=== PATIENT | male | born 2000 | race American Indian/Alaskan Native ===

== ENCOUNTER 2018-09-13 01:28 | Inpatient (IN) | payer OTHER, SELFPAY ==
[2018-09-13 02:02] LABS: Basophils % (Auto) 0.2 % (0.0-1.8); Eosinophils # (Auto) 0.1 K/mm3 (0.0-0.4); Hematocrit 42.3 % (35.5-45.6); Hemoglobin 14.5 gm/dl (11.8-15.2); Lymphocytes # (Auto) 1.4 K/mm3 (1.2-5.4); Lymphocytes % (Auto) 14.2 % (13.4-35.0); Mean Corpuscular HGB Conc 34 % (32-34); Mean Corpuscular Volume 78 fl (84-94); Monocytes # (Auto) 0.7 K/mm3 (0.0-0.8); Monocytes % (Auto) 7.3 % (0.0-7.3); Platelet Count 329 K/mm3 (140-440); Red Blood Count 5.42 M/mm3 (3.65-5.03)
[2018-09-13 02:09] LABS: Bilirubin,Urine NEG (Negative); Blood,Urine NEG (Negative); Color,Urine Yellow (Yellow); Mucus,Urine FEW /HPF; Protein,Urine <15 mg/dL mg/dL (Negative); Urobilinogen,Urine < 2.0 mg/dL (<2.0)
[2018-09-13 02:23] LABS: BUN/Creatinine Ratio 10; Blood Urea Nitrogen 11 mg/dL (9-20); Calcium 9.5 mg/dL (8.4-10.2); Hemolysis Index 5
[2018-09-13] MEDS ORDERED: NACL 0.9% 1000 ML 1,000 ML IV ONE (03:55)
[2018-09-13] MEDS ORDERED: TORADOL IV ONE (03:55)
[2018-09-13] MEDS ORDERED: ZOFRAN IV ONE (03:55)
--- NOTE | 2018-09-13 04:38 | Cat Scan Report ---
PROCEDURE: CT ABDOMEN PELVIS W CON TECHNIQUE: Computerized axial tomography of the abdomen and pelvis was performed after the IV inject ion of iodinated nonionic contrast. CT DOSE LENGTH PRODUCT: 2644.1 mGycm HISTORY: generalized abd pain COMPARISONS: None . FINDINGS: Visualized lower thorax: No significant abnormality. Liver: Normal size and attenuation. Spleen: Normal size and attenuation. Gallbladder and biliary system: Normal. Pancreas: Normal. Adrenals: Normal. Kidneys: Normal. GI tract: There is mucosal thickening of the terminal ileum, cecum and right colon consistent with i nflammatory bowel disease. There is partial small bowel obstruction versus ileus. The appendix is nor mal. Lymph nodes and mesentery: There is mesenteric adenopathy and induration.. Vasculature: Normal.. Bladder: Normal. Reproductive organs: Normal. Peritoneum: There is minimal ascites. There is no free air. There is no abscess.. Musculoskeletal structures: No significant abnormality. IMPRESSION: There is mucosal thickening of the terminal ileum, cecum and right colon consistent with inflammatory bowel disease. There is partial small bowel obstruction versus ileus. The appendix is normal. There is mesenteric adenopathy and induration.. There is minimal ascites. There is no free air. There is no abscess.. . This document is electronically signed by Brian Colvin MD., September 13 2018 05:36:34 AM ET
--- NOTE | 2018-09-13 04:57 | Emergency Department Report ---
ED Abdominal Pain HPI - General Chief Complaint: Abdominal Pain Stated Complaint: ABD PAIN Time Seen by Provider: 09/13/18 03:30 Source: patient Mode of arrival: Ambulatory Limitations: No Limitations - History of Present Illness Initial Comments: Pt is a 18 yo male who presents to the ED with c/o generalized abdominal pain that began a month ago. he has associated nausea. he states that he had diarrhea for a month. He states he has not had a BM today but had diarrhea yesterday. He denies any emesis, fever, or urinary sx. He states two weeks ago he was seen at urgent care and given abx for his diarrhea but does not know what he took. He denies every having before. He denies any PMHx. He denies any abdominal surgeries. no allergies to medications. Severity scale (0 -10): 8 - Related Data Previous Rx's Medication Instructions Recorded Last Taken Type Pantoprazole [Protonix TAB] 40 mg PO DAILY #14 tablet 09/16/18 Unknown Rx levoFLOXacin [Levaquin] 750 mg PO QDAY #7 tablet 09/16/18 Unknown Rx metroNIDAZOLE [Flagyl] 500 mg PO Q8HR #21 tablet 09/16/18 Unknown Rx predniSONE [Deltasone] 4 tab PO QDAY #70 tab 09/16/18 Unknown Rx Allergies Allergy/AdvReac Type Severity Reaction Status Date / Time No Known Allergies Allergy Verified 09/13/18 01:31 ED Review of Systems ROS: Stated complaint: ABD PAIN Other details as noted in HPI Comment: All other systems reviewed and negative ED Past Medical Hx - Past Medical History Previous Medical History?: No - Surgical History Past Surgical History?: No - Social History Smoking Status: Never Smoker Substance Use Type: None - Medications Home Medications: Home Medications Medication Instructions Recorded Confirmed Last Taken Type Pantoprazole [Protonix TAB] 40 mg PO DAILY #14 tablet 09/16/18 Unknown Rx levoFLOXacin [Levaquin] 750 mg PO QDAY #7 tablet 09/16/18 Unknown Rx metroNIDAZOLE [Flagyl] 500 mg PO Q8HR #21 tablet 09/16/18 Unknown Rx predniSONE [Deltasone] 4 tab PO QDAY #70 tab 09/16/18 Unknown Rx ED Physical Exam - General Limitations: No Limitations General appearance: alert, in no apparent distress - Head Head exam: Present: atraumatic, normocephalic - Eye Eye exam: Present: normal appearance, PERRL - ENT ENT exam: Present: mucous membranes moist - Respiratory Respiratory exam: Present: normal lung sounds bilaterally. Absent: respiratory distress, wheezes, rales, rhonchi, stridor, chest wall tenderness, accessory muscle use, decreased breath sounds, prolonged expiratory - Cardiovascular Cardiovascular Exam: Present: regular rate, normal rhythm, normal heart sounds. Absent: systolic murmur, diastolic murmur, rubs, gallop - GI/Abdominal GI/Abdominal exam: Present: soft, tenderness (generalized TTP), guarding (voluntary ), normal bowel sounds. Absent: distended, rebound, rigid - Neurological Exam Neurological exam: Present: alert, oriented X3 - Psychiatric Psychiatric exam: Present: normal affect, normal mood - Skin Skin exam: Present: warm, dry, intact ED Course Vital Signs 09/13/18 09/13/18 09/13/18 01:32 04:59 05:08 Temperature 100.0 F H Pulse Rate 95 H Respiratory 18 20 20 Rate Blood Pressure 151/78 Blood Pressure [Left] O2 Sat by Pulse 99 99 Oximetry 09/13/18 06:04 Temperature 98.5 F Pulse Rate 76 Respiratory 20 Rate Blood Pressure Blood Pressure 94/55 [Left] O2 Sat by Pulse 97 Oximetry - Consultations Consultation #1: 09/13/18 04:[address] Guy GI who recommended to admit pt to the hospital to hospitalist, advised to make pt NPO, give IV cipro and flagyl, order stool studies and c diff and will eval pt in the morning. Consultation #2: 09/13/18 05:[address] Siu, hospitalist who will admit pt to the hospital, will accept and resume care of patient. ED Medical Decision Making - Lab Data Result diagrams: 09/14/18 07:55 09/14/18 07:55 Lab Results 09/13/18 09/13/18 09/13/18 Range/Units 01:45 01:47 01:47 WBC 9.5 (4.5-11.0) K/mm3 RBC 5.42 H (3.65-5.03) M/mm3 Hgb 14.5 (11.8-15.2) gm/dl Hct 42.3 (35.5-45.6) % MCV 78 L (84-94) fl MCH 27 L (28-32) pg MCHC 34 (32-34) % RDW 14.0 (13.2-15.2) % Plt Count 329 (140-440) K/mm3 Lymph % (Auto) 14.2 (13.4-35.0) % [place] % (Auto) 7.3 (0.0-7.3) % Eos % (Auto) 1.0 (0.0-4.3) % Baso % (Auto) 0.2 (0.0-1.8) % Lymph # 1.4 (1.2-5.4) K/mm3 [place] # 0.7 (0.0-0.8) K/mm3 Eos # 0.1 (0.0-0.4) K/mm3 Baso # 0.0 (0.0-0.1) K/mm3 Seg Neutrophils % 77.3 H (40.0-70.0) % Seg Neutrophils # 7.4 (1.8-7.7) K/mm3 Sodium 132 L (137-145) mmol/L Potassium 3.8 (3.6-5.0) mmol/L Chloride 94.2 L (98-107) mmol/L Carbon Dioxide 25 (22-30) mmol/L Anion Gap 17 mmol/L BUN 11 (9-20) mg/dL Creatinine 1.1 (0.8-1.5) mg/dL Estimated GFR > 60 ml/min BUN/Creatinine Ratio 10 % Glucose 93 (75-100) mg/dL Calcium 9.5 (8.4-10.2) mg/dL Urine Color Yellow (Yellow) Urine Turbidity Clear (Clear) Urine pH 5.0 (5.0-7.0) Ur Specific [place] 1.018 (1.003-1.030) Urine Protein <15 mg/dl (Negative) mg/dL Urine Glucose (UA) Neg (Negative) mg/dL Urine Ketones 20 (Negative) mg/dL Urine Blood Neg (Negative) Urine Nitrite Neg (Negative) Urine Bilirubin Neg (Negative) Urine Urobilinogen < 2.0 (<2.0) mg/dL Ur Leukocyte Esterase Neg (Negative) Urine WBC (Auto) 1.0 (0.0-6.0) /HPF Urine RBC (Auto) 1.0 (0.0-6.0) /HPF Urine Mucus Few /HPF Vital Signs 09/13/18 09/13/18 09/13/18 01:32 04:59 05:08 Temperature 100.0 F H Pulse Rate 95 H Respiratory 18 20 20 Rate Blood Pressure 151/78 Blood Pressure [Left] O2 Sat by Pulse 99 99 Oximetry 09/13/18 06:04 Temperature 98.5 F Pulse Rate 76 Respiratory 20 Rate Blood Pressure Blood Pressure 94/55 [Left] O2 Sat by Pulse 97 Oximetry - Radiology Data Radiology results: report reviewed PROCEDURE: CT ABDOMEN PELVIS W CON TECHNIQUE: Computerized axial tomography of the abdomen and pelvis was performed after the IV injection of iodinated nonionic contrast. CT DOSE LENGTH PRODUCT: 2644.1 mGycm HISTORY: generalized abd pain COMPARISONS: None . FINDINGS: Visualized lower thorax: No significant abnormality. Liver: Normal size and attenuation. Spleen: Normal size and attenuation. Gallbladder and biliary system: Normal. Pancreas: Normal. Adrenals: Normal. Kidneys: Normal. GI tract: There is mucosal thickening of the terminal ileum, cecum and right colon consistent with inflammatory bowel disease. There is partial small bowel obstruction versus ileus. The appendix is normal. Lymph nodes and mesentery: There is mesenteric adenopathy and induration.. Vasculature: Normal.. Bladder: Normal. Reproductive organs: Normal. Peritoneum: There is minimal ascites. There is no free air. There is no abscess.. Musculoskeletal structures: No significant abnormality. IMPRESSION: There is mucosal thickening of the terminal ileum, cecum and right colon consistent with inflammatory bowel disease. There is partial small bowel obstruction versus ileus. The appendix is normal. There is mesenteric adenopathy and induration.. There is minimal ascites. There is no free air. There is no abscess.. . This document is electronically signed by Bravo Steve MD., September 13 2018 05:36:34 AM ET Transcribed By: CO Dictated By: BRAVO STEVE MD Electronically Authenticated By: BRAVO STEVE MD Signed Date/Time: 09/13/18 0438 - Medical Decision Making Pt is a 18 yo male who presents to the ED with c/o generalized abdominal pain that began a month ago. he has associated nausea. he states that he had diarrhea for a month. He states he has not had a BM today but had diarrhea yesterday. He denies any emesis, fever, or urinary sx. He states two weeks ago he was seen at urgent care and given abx for his diarrhea but does not know what he took. He denies every having before. He denies any PMHx. He denies any abdominal surgeries. no allergies to medications. labs WNL, UA is normal. VSS. on exam pt has generalized abd tenderness. CT abd/pelvis shows There is mucosal thickening of the terminal ileum, cecum and right colon consistent with inflammatory bowel disease. There is partial small bowel obstruction versus ileus. The appendix is normal. There is mesenteric adenopathy and induration.There is minimal ascites. There is no free air. There is no abscess. Pt is tolerating PO intake and has normal bowel sounds. discussed case with Dr. Guy, GI who advised admission and to give IV cipro/flagyl order stool studies and admit to hospitalist and will consult on pt. Dr. Siu, hospitalist will accept and resume care of patient and will admit to hospital for further evaluation and management. Critical care attestation.: If time is entered above; I have spent that time in minutes in the direct care of this critically ill patient, excluding procedure time. ED Disposition Clinical Impression: Abdominal pain Qualifiers: Abdominal location: unspecified location Qualified Code(s): R10.9 - Unspecified abdominal pain Diarrhea Qualifiers: Diarrhea type: unspecified type Qualified Code(s): R19.7 - Diarrhea, unspecifi ed Disposition: OP ADMIT IP TO THIS HOSP Is pt being admited?: Yes Does the pt Need Aspirin: No Condition: Fair Time of Disposition: 05:15
[2018-09-13] MEDS ORDERED: LEVAQUIN 750MG/150ML 750 MG/150 ML BAG IV ONE (05:09)
[2018-09-13] MEDS ORDERED: SODIUM CHLORIDE FLUSH SYRINGE 10 ML IV PRN (05:31)
[2018-09-13] MEDS ORDERED: TYLENOL PO PRN (05:31)
--- NOTE | 2018-09-13 05:37 | History and Physical Report ---
<MINDA GUAJARDO - Last Filed: 09/13/18 05:40> History of Present Illness Date of examination: 09/13/18 Date of admission: 05/20/2018 Chief complaint: Abdominal pain 1 month History of present illness: Patient is a 18-year-old male with no prior medical history we'll presents to the ER with complaints of abdomen pain 1 month. Patient patient's report intermittent abdominal pain for a month ago, the pain is cramp-like pain diffusing throughout the abdomen, he reports that the pain is sometimes related to food but does not persist after he ate. Patient states that he went to an urgent care about 2 weeks ago for abdominal pain and diarrhea, he was prescribes some antibiotics, he denied bloody diarrhea, denies constipation, denies nausea nor vomiting, he denied traveling, denies history of prior abdominal surgery, denied fever or chills. Patient had a CT scan of the abdomen and pelvis in the ER which showed mucosal thickening of the terminal ileum sacrum and right colon consistent with inflammatory bowel disease, there is partial small bowel obstruction versus ileus. Gen. surgery is consulted, patient is kept NPO and admitted for further evaluation and treatments. Past History Past Medical History: No medical history Past Surgical History: No surgical history Social history: no significant social history Family history: no significant family history Medications and Allergies Allergies Allergy/AdvReac Type Severity Reaction Status Date / Time No Known Allergies Allergy Verified 09/13/18 01:31 Home Medications Medication Instructions Recorded Confirmed Last Taken Type No Known Home Medications [No 09/13/18 09/13/18 Unknown History Reported Home Medications] Active Meds: Active Medications Metronidazole (Flagyl 500 Mg/100 Ml) 500 mg in 100 mls @ 100 mls/hr IV Q8HR SC H; Protocol Levofloxacin/Dextrose (Levaquin 750mg/150ml) 750 mg in 150 mls @ 100 mls/hr IV ONCE ONE Stop: 09/13/18 06:38 Review of Systems Gastrointestinal: abdominal pain Exam - Constitutional Vitals: Temp Pulse Resp BP Pulse Ox 100.0 F H 95 H 20 151/78 99 09/13/18 01:32 09/13/18 01:32 09/13/18 05:08 09/13/18 01:32 09/13/18 05:08 General appearance: Present: mild distress - EENT Eyes: Present: EOM intact ENT: hearing intact - Neck Neck: Present: normal ROM - Respiratory Respiratory: bilateral: CTA - Cardiovascular Rhythm: regular - Extremities Extremities: no ischemia, No edema Peripheral Pulses: within normal limits - Abdominal General gastrointestinal: Present: tender, distended (mild distention), rigid Male genitourinary: Present: deferred - Rectal Rectal Exam: deferred - Integumentary Integumentary: Present: warm, dry - Musculoskeletal Musculoskeletal: strength equal bilaterally - Psychiatric Psychiatric: appropriate mood/affect, cooperative - Neurologic Neurologic: moves all extremities Results - Labs CBC & Chem 7: 09/13/18 01:47 09/13/18 01:47 Labs: Laboratory Last Values WBC 9.5 K/mm3 (4.5-11.0) 09/13/18 01:47 RBC 5.42 M/mm3 (3.65-5.03) H 09/13/18 01:47 Hgb 14.5 gm/dl (11.8-15.2) 09/13/18 01:47 Hct 42.3 % (35.5-45.6) 09/13/18 01:47 MCV 78 fl (84-94) L 09/13/18 01:47 MCH 27 pg (28-32) L 09/13/18 01:47 MCHC 34 % (32-34) 09/13/18 01:47 RDW 14.0 % (13.2-15.2) 09/13/18 01:47 Plt Count 329 K/mm3 (140-440) 09/13/18 01:47 Lymph % (Auto) 14.2 % (13.4-35.0) 09/13/18 01:47 [place] % (Auto) 7.3 % (0.0-7.3) 09/13/18 01:47 Eos % (Auto) 1.0 % (0.0-4.3) 09/13/18 01:47 Baso % (Auto) 0.2 % (0.0-1.8) 09/13/18 01:47 Lymph # 1.4 K/mm3 (1.2-5.4) 09/13/18 01:47 [place] # 0.7 K/mm3 (0.0-0.8) 09/13/18 01:47 Eos # 0.1 K/mm3 (0.0-0.4) 09/13/18 01:47 Baso # 0.0 K/mm3 (0.0-0.1) 09/13/18 01:47 Seg Neutrophils % 77.3 % (40.0-70.0) H 09/13/18 01:47 Seg Neutrophils # 7.4 K/mm3 (1.8-7.7) 09/13/18 01:47 Sodium 132 mmol/L (137-145) L 09/13/18 01:47 Potassium 3.8 mmol/L (3.6-5.0) 09/13/18 01:47 Chloride 94.2 mmol/L (98-107) L 09/13/18 01:47 Carbon Dioxide 25 mmol/L (22-30) 09/13/18 01:47 17 mmol/L 09/13/18 01:47 BUN 11 mg/dL (9-20) 09/13/18 01:47 1.1 mg/dL (0.8-1.5) 09/13/18 01:47 Estimated GFR > 60 ml/min 09/13/18 01:47 10 % 09/13/18 01:47 Glucose 93 mg/dL (75-100) 09/13/18 01:47 Calcium 9.5 mg/dL (8.4-10.2) 09/13/18 01:47 Yellow (Yellow) 09/13/18 01:45 Clear (Clear) 09/13/18 01:45 5.0 (5.0-7.0) 09/13/18 01:45 Ur Specific [place] 1.018 (1.003-1.030) 09/13/18 01:45 <15 mg/dl mg/dL (Negative) 09/13/18 01:45 Neg mg/dL (Negative) 09/13/18 01:45 20 mg/dL (Negative) 09/13/18 01:45 Neg (Negative) 09/13/18 01:45 Neg (Negative) 09/13/18 01:45 Neg (Negative) 09/13/18 01:45 < 2.0 mg/dL (<2.0) 09/13/18 01:45 Ur Leukocyte Esterase Neg (Negative) 09/13/18 01:45 1.0 /HPF (0.0-6.0) 09/13/18 01:45 1.0 /HPF (0.0-6.0) 09/13/18 01:45 Few /HPF 09/13/18 01:45 Assessment and Plan Assessment and plan: 1. Small bowel obstruction 2. Abdomen no pain (likely due to both) 3. Possible inflammatory bowel disease Plan: Patient is admitted to surgical floor for abdomenal pain and SBO Consult surgery for evaluation Keep NPO Insert NG tube to low intermitent suctioning Small bowel series (to f/u obstruction) Morphine PRN for abdominal pain Protonix 40 IV Qay IVF with D51/2 at 125 ml Plan of care discussed with patient and mother, voiced understanding Patient's condition, and discuss with Dr. Siu Advance Directives: Yes VTE prophylaxis?: Mechanical Plan of care discussed with patient/family: Yes <DAVEY SIU - Last Filed: 09/13/18 06:27> History of Present Illness Date of admission: 09/13/18 05:41 Medications and Allergies Active Meds: Active Medications Famotidine (Pepcid) 20 mg IV BID JAY Metronidazole (Flagyl 500 Mg/100 Ml) 500 mg in 100 mls @ 100 mls/hr IV Q8HR JAY; Protocol Levofloxacin/Dextrose (Levaquin 750mg/150ml) 750 mg in 150 mls @ 100 mls/hr IV ONCE ONE Stop: 09/13/18 06:38 Last Admin: 09/13/18 05:39 Dose: 100 mls/hr Documented by: Dextrose/Sodium Chloride (D5/0.45ns) 1,000 mls @ 125 mls/hr IV DIRECT JAY Last Admin: 09/13/18 06:04 Dose: 125 mls/hr Documented by: Levofloxacin/Dextrose (Levaquin 750mg/150ml) 750 mg in 150 mls @ 100 mls/hr IV Q24HR JAY; Protocol Morphine Sulfate (Morphine) 2 mg IV Q4H PRN PRN Reason: Pain, Moderate (4-6) Ondansetron HCl (Zofran) 4 mg IV Q8H PRN PRN Reason: Nausea And Vomiting Pantoprazole Sodium (Protonix) 40 mg IV QDAY JAY Sodium Chloride (Sodium Chloride Flush Syringe 10 Ml) 10 ml IV BID JAY Sodium Chloride (Sodium Chloride Flush Syringe 10 Ml) 10 ml IV PRN PRN PRN Reason: LINE FLUSH Exam - Constitutional Vitals: Temp Pulse Resp BP Pulse Ox 98.5 F 76 20 94/55 97 09/13/18 06:04 09/13/18 06:04 09/13/18 06:04 09/13/18 06:04 09/13/18 06:04 Results - Labs CBC & Chem 7: 09/13/18 01:47 09/13/18 01:47 Labs: Laboratory Last Values WBC 9.5 K/mm3 (4.5-11.0) 09/13/18 01:47 RBC 5.42 M/mm3 (3.65-5.03) H 09/13/18 01:47 Hgb 14.5 gm/dl (11.8-15.2) 09/13/18 01:47 Hct 42.3 % (35.5-45.6) 09/13/18 01:47 MCV 78 fl (84-94) L 09/13/18 01:47 MCH 27 pg (28-32) L 09/13/18 01:47 MCHC 34 % (32-34) 09/13/18 01:47 RDW 14.0 % (13.2-15.2) 09/13/18 01:47 Plt Count 329 K/mm3 (140-440) 09/13/18 01:47 Lymph % (Auto) 14.2 % (13.4-35.0) 09/13/18 01:47 [place] % (Auto) 7.3 % (0.0-7.3) 09/13/18 01:47 Eos % (Auto) 1.0 % (0.0-4.3) 09/13/18 01:47 Baso % (Auto) 0.2 % (0.0-1.8) 09/13/18 01:47 Lymph # 1.4 K/mm3 (1.2-5.4) 09/13/18 01:47 [place] # 0.7 K/mm3 (0.0-0.8) 09/13/18 01:47 Eos # 0.1 K/mm3 (0.0-0.4) 09/13/18 01:47 Baso # 0.0 K/mm3 (0.0-0.1) 09/13/18 01:47 Seg Neutrophils % 77.3 % (40.0-70.0) H 09/13/18 01:47 Seg Neutrophils # 7.4 K/mm3 (1.8-7.7) 09/13/18 01:47 Sodium 132 mmol/L (137-145) L 09/13/18 01:47 Potassium 3.8 mmol/L (3.6-5.0) 09/13/18 01:47 Chloride 94.2 mmol/L (98-107) L 09/13/18 01:47 Carbon Dioxide 25 mmol/L (22-30) 09/13/18 01:47 17 mmol/L 09/13/18 01:47 BUN 11 mg/dL (9-20) 09/13/18 01:47 1.1 mg/dL (0.8-1.5) 09/13/18 01:47 Estimated GFR > 60 ml/min 09/13/18 01:47 10 % 09/13/18 01:47 Glucose 93 mg/dL (75-100) 09/13/18 01:47 Calcium 9.5 mg/dL (8.4-10.2) 09/13/18 01:47 Yellow (Yellow) 09/13/18 01:45 Clear (Clear) 09/13/18 01:45 5.0 (5.0-7.0) 09/13/18 01:45 Ur Specific [place] 1.018 (1.003-1.030) 09/13/18 01:45 <15 mg/dl mg/dL (Negative) 09/13/18 01:45 Neg mg/dL (Negative) 09/13/18 01:45 20 mg/dL (Negative) 09/13/18 01:45 Neg (Negative) 09/13/18 01:45 Neg (Negative) 09/13/18 01:45 Neg (Negative) 09/13/18 01:45 < 2.0 mg/dL (<2.0) 09/13/18 01:45 Ur Leukocyte Esterase Neg (Negative) 09/13/18 01:45 1.0 /HPF (0.0-6.0) 09/13/18 01:45 1.0 /HPF (0.0-6.0) 09/13/18 01:45 Few /HPF 09/13/18 01:45 Assessment and Plan Assessment and plan: 18 -year-old man with no medical problems comes emergency room with complaints of abdominal pain and diarrhea for one month. Abdominal pain is in the lower quadrant, dull crampy pain, it was intermittent but has now become constant, has 3-5 episodes of diarrhea per day. He saw physician 2 weeks ago, was given medication for diarrhea and another medication which she cannot recall. This pain has now become constant. Physical exam is significant for lower abdominal tenderness, decreased bowel sounds. GI was consult to see the patient in the emergency room. Patient with possible small bowel obstruction and thickening of the ileum possible IBD. Agree with plan as stated above, consult surgery, hold abdominal series for now, start IV Levaquin, Flagyl
[2018-09-13] MEDS ORDERED: D5/0.45NS 1,000 ML IV ONE (06:02)
[2018-09-13] MEDS: D5/0.45NS 1,000 ML IV SCH ×2 (06:04→19:52)
[2018-09-13] MEDS: FLAGYL 500 MG/100 ML 500 MG/100 ML BAG IV SCH ×3 (07:55→21:42)
[2018-09-13] MEDS ORDERED: PEPCID IV SCH (10:00)
[2018-09-13] MEDS: SODIUM CHLORIDE FLUSH SYRINGE 10 ML IV SCH ×2 (11:01→21:51)
--- NOTE | 2018-09-13 11:31 | Consultation ---
History of Present Illness Consult date: 09/13/18 Reason for consult: abdominal pain Requesting physician: DAVEY DE LEON Chief complaint: abd pain for 1 month that got worse - History of present illness History of present illness: 18 yo M o/w healthy presents with acute exacerbation of his chronic abdominal pain. Pain is been centered on the umbilicus and been present for about one month. Described as crampy in nature. Yesterday associated with nausea and vomiting. That has not been a chronic issue. He's never had anything like this prior to 1 month ago. It started all of a sudden one day. Since he was in the emergency room, he has had a small bowel movement and passed gas. He is not nauseated at this time. He pulled out his NG tube this morning. Denies any weight loss. Has been eating normally up until yesterday. No family history of any intestinal diseases. 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 denies: smoking, alcohol abuse Family history: no significant family history Medications and Allergies Allergies Allergy/AdvReac Type Severity Reaction Status Date / Time No Known Allergies Allergy Verified 09/13/18 01:31 Home Medications Medication Instructions Recorded Confirmed Last Taken Type No Known Home Medications [No 09/13/18 09/13/18 Unknown History Reported Home Medications] Active Meds: Active Medications Metronidazole (Flagyl 500 Mg/100 Ml) 500 mg in 100 mls @ 100 mls/hr IV Q8HR JAY; Protocol Last Admin: 09/13/18 07:55 Dose: 100 mls/hr Documented by: Dextrose/Sodium Chloride (D5/0.45ns) 1,000 mls @ 125 mls/hr IV DIRECT JAY Last Admin: 09/13/18 06:04 Dose: 125 mls/hr Documented by: Levofloxacin/Dextrose (Levaquin 750mg/150ml) 750 mg in 150 mls @ 100 mls/hr IV Q24HR JAY; Protocol Morphine Sulfate (Morphine) 2 mg IV Q4H PRN PRN Reason: Pain, Moderate (4-6) Ondansetron HCl (Zofran) 4 mg IV Q8H PRN PRN Reason: Nausea And Vomiting Pantoprazole Sodium (Protonix) 40 mg IV QDAY [facility] Sodium Chloride (Sodium Chloride Flush Syringe 10 Ml) 10 ml IV BID JAY Last Admin: 09/13/18 11:01 Dose: Not Given Documented by: Sodium Chloride (Sodium Chloride Flush Syringe 10 Ml) 10 ml IV PRN PRN PRN Reason: LINE FLUSH Review of Systems - Constitutional chronic pain, no weight loss, no fever, no chills - Cardiovascular no chest pain - Respiratory no cough, no shortness of breath, no dyspnea on exertion - Gastrointestinal abdominal pain, nausea, vomiting, diarrhea (for 1 month), dyspepsia/bloating, no hematemesis, no coffee ground emesis, no BRBPR, no melena, no hematochezia - Genitourinary no dysuria - Muskuloskeletal no low back pain Exam Vital Signs Temp Pulse Resp BP Pulse Ox 100.0 F H 95 H 18 151/78 99 09/13/18 01:32 09/13/18 01:32 09/13/18 01:32 09/13/18 01:32 09/13/18 01:32 - General physical appearance Positive: no distress, no pain, other (appears tired. appears to have pain when he moves). Negative: cathetic, chronically ill, obese - Eyes Positive: PERRL, normal occular movement. Negative: pale, icteric - Respiratory Positive: normal expansion, normal respiratory effort, clear to auscultation - Cardiovascular Rhythm: regular - Abdomen Abdomen: Present: soft, bowel sounds hypoactive. Absent: tender, distended, guarding, rigid, wound, surgical scars - Integumentary no rash, no growths, no abnormal pigmentation - Neurologic Neurologic: alert and oriented to time, place and person, motor strength and sensation are grossly intact - Psychiatric Psychiatric: appropriate mood/affect, intact judgment & insight, cooperative Results - Labs 09/13/18 01:47 09/13/18 01:47 Abnormal lab results 09/13/18 09/13/18 Range/Units 01:47 01:47 RBC 5.42 H (3.65-5.03) M/mm3 MCV 78 L (84-94) fl MCH 27 L (28-32) pg Seg Neutrophils % 77.3 H (40.0-70.0) % Sodium 132 L (137-145) mmol/L Chloride 94.2 L (98-107) mmol/L Diabetes panel 09/13/18 Range/Units 01:47 Sodium 132 L (137-145) mmol/L Potassium 3.8 (3.6-5.0) mmol/L Chloride 94.2 L (98-107) mmol/L Carbon Dioxide 25 (22-30) mmol/L BUN 11 (9-20) mg/dL Creatinine 1.1 (0.8-1.5) mg/dL Glucose 93 (75-100) mg/dL Calcium 9.5 (8.4-10.2) mg/dL Calcium panel 09/13/18 Range/Units 01:47 Calcium 9.5 (8.4-10.2) mg/dL Pituitary panel 09/13/18 Range/Units 01:47 Sodium 132 L (137-145) mmol/L Potassium 3.8 (3.6-5.0) mmol/L Chloride 94.2 L (98-107) mmol/L Carbon Dioxide 25 (22-30) mmol/L BUN 11 (9-20) mg/dL Creatinine 1.1 (0.8-1.5) mg/dL Glucose 93 (75-100) mg/dL Calcium 9.5 (8.4-10.2) mg/dL Adrenal panel 09/13/18 Range/Units 01:47 Sodium 132 L (137-145) mmol/L Potassium 3.8 (3.6-5.0) mmol/L Chloride 94.2 L (98-107) mmol/L Carbon Dioxide 25 (22-30) mmol/L BUN 11 (9-20) mg/dL Creatinine 1.1 (0.8-1.5) mg/dL Glucose 93 (75-100) mg/dL Calcium 9.5 (8.4-10.2) mg/dL - Imaging CT scan - abdomen: report reviewed, image reviewed CT scan - pelvis: report reviewed, image reviewed Assessment and Plan - Patient Problems (1) Abdominal pain Current Visit: Yes Status: Acute Qualifiers: Abdominal location: unspecified location Qualified Code(s): R10.9 - Unspecified abdominal pain Plan to address problem: Pt stable. Based on the appearance of the CT with the thickened bowel in the right lower quadrant and the chronic nature of his pain, it is concerning for inflammatory bowel disease. Infection is also a possibility No urgent surgical intervention is needed at this time. Await GI consult. We will follow along in his care. Please call with any questions. Time=30min
[2018-09-13] MEDS: PROTONIX IV SCH (11:40)
--- NOTE | 2018-09-13 14:01 | Gastroenterology Consultation ---
History of Present Illness - Reason for Consult Consult date: 09/13/18 colitis Requesting physician: JANY HARRIS - History of Present Illness This is a 18 yo male with no significant pmh admitted overnight for colitis after presenting for worsening abdominal pain. History obtained from patient and mother in the room. Patient has had mid abdominal pain for the past 1 month or so. Pain became worse with severe cramping pain along with nausea/vomiting, prompting ED visit. He also has had multiple loose stools daily. In the ED, he had CT abdomen showing mucosal thickening of the TI, cecum, and right colon as well as partial small bowel obstruction versus ileus. He had NG tube placed but pulled out this morning. His abdominal pain has improved today. no nausea/v omiting. No diarrhea today. He has been on IV levaquin and flagyl. 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 denies: smoking, alcohol abuse Family history: no significant family history Medications and Allergies Allergies Allergy/AdvReac Type Severity Reaction Status Date / Time No Known Allergies Allergy Verified 09/13/18 01:31 Home Medications Medication Instructions Recorded Confirmed Last Taken Type No Known Home Medications [No 09/13/18 09/13/18 Unknown History Reported Home Medications] Active Meds: Active Medications Metronidazole (Flagyl 500 Mg/100 Ml) 500 mg in 100 mls @ 100 mls/hr IV Q8HR JAY; Protocol Last Admin: 09/13/18 07:55 Dose: 100 mls/hr Documented by: Dextrose/Sodium Chloride (D5/0.45ns) 1,000 mls @ 125 mls/hr IV DIRECT JAY Last Admin: 09/13/18 06:04 Dose: 125 mls/hr Documented by: Levofloxacin/Dextrose (Levaquin 750mg/150ml) 750 mg in 150 mls @ 100 mls/hr IV Q24HR JAY; Protocol Morphine Sulfate (Morphine) 2 mg IV Q4H PRN PRN Reason: Pain, Moderate (4-6) Ondansetron HCl (Zofran) 4 mg IV Q8H PRN PRN Reason: Nausea And Vomiting Pantoprazole Sodium (Protonix) 40 mg IV QDAY [facility] Last Admin: 09/13/18 11:40 Dose: 40 mg Documented by: Sodium Chloride (Sodium Chloride Flush Syringe 10 Ml) 10 ml IV BID JAY Last Admin: 09/13/18 11:01 Dose: Not Given Documented by: Sodium Chloride (Sodium Chloride Flush Syringe 10 Ml) 10 ml IV PRN PRN PRN Reason: LINE FLUSH Review of Systems - Review of Systems All systems: negative Constitutional: fatigue, weakness, no weight gain Respiratory: no cough, no shortness of breath Gastrointestinal: abdominal pain, nausea, vomiting, diarrhea, no BRBPR, no melena, no hematochezia Musculoskeletal: no joint pain Integumentary: no rash Exam - Constitutional Vital Signs: Temp Pulse Resp BP Pulse Ox 98.8 F 85 18 111/68 99 09/13/18 11:16 09/13/18 11:16 09/13/18 11:16 09/13/18 11:16 09/13/18 11:16 General appearance: no acute distress, well-nourished - EENT ENT: hearing intact, clear oral mucosa, dentition normal - Neck Neck: supple, normal ROM, no masses or JVD - Respiratory Respiratory effort: normal Respiratory: bilateral: CTA - Breasts Breasts: deferred - Cardiovascular Rhythm: regular Heart Sounds: Present: S1 & S2. Absent: gallop, rub Extremities: pulses intact, No edema, normal color, Full ROM - Gastrointestinal General gastrointestinal: Present: soft, tender, non-distended, normal bowel sounds - Integumentary Integumentary: Present: clear, warm, dry - Neurologic Neurological: alert and oriented x3 - Psychiatric Psychiatric: appropriate mood/affect - Labs CBC & Chem 7: 09/13/18 01:47 09/13/18 01:47 Lab Results: Laboratory Results - last 24 hr 09/13/18 09/13/18 09/13/18 01:45 01:47 01:47 WBC 9.5 RBC 5.42 H Hgb 14.5 Hct 42.3 MCV 78 L MCH 27 L MCHC 34 RDW 14.0 Plt Count 329 Lymph % (Auto) 14.2 [place] % (Auto) 7.3 Eos % (Auto) 1.0 Baso % (Auto) 0.2 Lymph # 1.4 [place] # 0.7 Eos # 0.1 Baso # 0.0 Seg Neutrophils % 77.3 H Seg Neutrophils # 7.4 Sodium 132 L Potassium 3.8 Chloride 94.2 L Carbon Dioxide 25 Anion Gap 17 BUN 11 Creatinine 1.1 Estimated GFR > 60 BUN/Creatinine Ratio 10 Glucose 93 Calcium 9.5 Urine Color Yellow Urine Turbidity Clear Urine pH 5.0 Ur Specific [place] 1.018 Urine Protein <15 mg/dl Urine Glucose (UA) Neg Urine Ketones 20 Urine Blood Neg Urine Nitrite Neg Urine Bilirubin Neg Urine Urobilinogen < 2.0 Ur Leukocyte Esterase Neg Urine WBC (Auto) 1.0 Urine RBC (Auto) 1.0 Urine Mucus Few Assessment and Plan # Colitis/enteritis CT abdomen showing mucosal thickening of the TI, cecum, and right colon as well as partial small bowel obstruction versus ileus. - ddx including Crohns' disease/IBD vs infectious causes. No NSAID use per family. - currently clinically improving with IV antibiotics. - no nausea/vomiting. passing flatus. Rec: - cont with IV antibiotics - trial of clear liquids. - check CRP - check C diff toxin (ordered) if having diarrhea. - if clinically not improving, may need colonoscopy while inpatient. Otherwise, will plan for outpatient follow up for colonoscopy. - will follow.
--- NOTE | 2018-09-13 14:21 | Event Note ---
Date: 09/13/18 Patient seen and examined, NGT to Low intermittent suction and tolerating. No new complaints. Continue current management at this time.
[2018-09-13] MEDS: MORPHINE IV PRN ×2 (17:02→21:44)
[2018-09-13] MEDS: ZOFRAN IV PRN (17:02)
[2018-09-14] MEDS: D5/0.45NS 1,000 ML IV SCH ×2 (04:41→16:46)
[2018-09-14] MEDS: ZOFRAN IV PRN (04:44)
[2018-09-14] MEDS: FLAGYL 500 MG/100 ML 500 MG/100 ML BAG IV SCH ×3 (05:56→22:11)
[2018-09-14 08:28] LABS: Hematocrit 36.1 % (35.5-45.6); Hemoglobin 12.3 gm/dl (11.8-15.2); Mean Corpuscular HGB Conc 34 % (32-34); Mean Corpuscular Volume 78 fl (84-94); Platelet Count 259 K/mm3 (140-440); Red Blood Count 4.64 M/mm3 (3.65-5.03)
[2018-09-14 08:45] LABS: BUN/Creatinine Ratio 6; Blood Urea Nitrogen 7 mg/dL (9-20); Calcium 8.6 mg/dL (8.4-10.2); Hemolysis Index 0
[2018-09-14] MEDS: SODIUM CHLORIDE FLUSH SYRINGE 10 ML IV SCH ×2 (10:00→22:14)
--- NOTE | 2018-09-14 10:55 | Progress Note ---
Assessment and Plan Assessment and plan: --Colitis./Enteritis; IV antibiotics, IV fluids, colonoscopy today GI and surgery following --Possible IBD/Crohn's versus infectious Supportive care, possible colonoscopy today --DVT prophylaxis; Lovenox Monitor closely and adjust management as needed History Interval history: Patient seen and examined medical records reviewed Patient complains of mild abdominal pain On IV antibiotics for acute colitis/enteritis No new events reported per nursing Vital signs noted Hospitalist Physical - Constitutional Vitals: Temp Pulse Resp BP Pulse Ox 98.1 F 75 18 109/55 97 09/14/18 07:10 09/14/18 07:10 09/14/18 07:10 09/14/18 07:10 09/14/18 07:10 General appearance: Present: mild distress, well-nourished, obese - EENT Eyes: Present: PERRL, EOM intact - Neck Neck: Present: supple, normal ROM - Respiratory Respiratory effort: normal Respiratory: bilateral: diminished, negative: rales, rhonchi, wheezing - Cardiovascular Rhythm: regular Heart Sounds: Present: S1 & S2 - Extremities Extremities: no ischemia, No edema - Abdominal General gastrointestinal: soft, tender, non-distended, normal bowel sounds - Integumentary Integumentary: Present: clear, warm - Psychiatric Psychiatric: appropriate mood/affect, cooperative - Neurologic Neurologic: CNII-XII intact, moves all extremities Results - Labs CBC & Chem 7: 09/14/18 07:55 09/14/18 07:55 Labs: Laboratory Last Values WBC 4.5 K/mm3 (4.5-11.0) 09/14/18 07:55 RBC 4.64 M/mm3 (3.65-5.03) 09/14/18 07:55 Hgb 12.3 gm/dl (11.8-15.2) 09/14/18 07:55 Hct 36.1 % (35.5-45.6) D 09/14/18 07:55 MCV 78 fl (84-94) L 09/14/18 07:55 MCH 26 pg (28-32) L 09/14/18 07:55 MCHC 34 % (32-34) 09/14/18 07:55 RDW 14.0 % (13.2-15.2) 09/14/18 07:55 Plt Count 259 K/mm3 (140-440) 09/14/18 07:55 Lymph % (Auto) 14.2 % (13.4-35.0) 09/13/18 01:47 [place] % (Auto) 7.3 % (0.0-7.3) 09/13/18 01:47 Eos % (Auto) 1.0 % (0.0-4.3) 09/13/18 01:47 Baso % (Auto) 0.2 % (0.0-1.8) 09/13/18 01:47 Lymph # 1.4 K/mm3 (1.2-5.4) 09/13/18 01:47 [place] # 0.7 K/mm3 (0.0-0.8) 09/13/18 01:47 Eos # 0.1 K/mm3 (0.0-0.4) 09/13/18 01:47 Baso # 0.0 K/mm3 (0.0-0.1) 09/13/18 01:47 Seg Neutrophils % 77.3 % (40.0-70.0) H 09/13/18 01:47 Seg Neutrophils # 7.4 K/mm3 (1.8-7.7) 09/13/18 01:47 Sodium 139 mmol/L (137-145) D 09/14/18 07:55 Potassium 4.0 mmol/L (3.6-5.0) 09/14/18 07:55 Chloride 100.5 mmol/L (98-107) 09/14/18 07:55 Carbon Dioxide 26 mmol/L (22-30) 09/14/18 07:55 17 mmol/L 09/14/18 07:55 BUN 7 mg/dL (9-20) L 09/14/18 07:55 1.2 mg/dL (0.8-1.5) 09/14/18 07:55 Estimated GFR > 60 ml/min 09/14/18 07:55 6 % 09/14/18 07:55 Glucose 107 mg/dL (75-100) H 09/14/18 07:55 Calcium 8.6 mg/dL (8.4-10.2) 09/14/18 07:55 13.40 mg/dL (0.00-1.30) H 09/13/18 14:56 Yellow (Yellow) 09/13/18 01:45 Clear (Clear) 09/13/18 01:45 5.0 (5.0-7.0) 09/13/18 01:45 Ur Specific [place] 1.018 (1.003-1.030) 09/13/18 01:45 <15 mg/dl mg/dL (Negative) 09/13/18 01:45 Neg mg/dL (Negative) 09/13/18 01:45 20 mg/dL (Negative) 09/13/18 01:45 Neg (Negative) 09/13/18 01:45 Neg (Negative) 09/13/18 01:45 Neg (Negative) 09/13/18 01:45 < 2.0 mg/dL (<2.0) 09/13/18 01:45 Ur Leukocyte Esterase Neg (Negative) 09/13/18 01:45 1.0 /HPF (0.0-6.0) 09/13/18 01:45 1.0 /HPF (0.0-6.0) 09/13/18 01:45 Few /HPF 09/13/18 01:45 Active Medications - Current Medications Current Medications: Generic Name Dose Route Start Last Admin Trade Name Freq PRN Reason Stop Dose Admin Metronidazole 500 mg in 100 mls @ 100 mls/hr 09/13/18 06:00 09/14/18 05:56 Flagyl 500 Mg/100 Ml IV 100 mls/hr Q8HR JAY Administration Protocol Dextrose/Sodium Chloride 1,000 mls @ 125 mls/hr 09/13/18 06:00 09/14/18 04:41 D5/0.45ns IV 125 mls/hr DIRECT JAY Administration Levofloxacin/Dextrose 750 mg in 150 mls @ 100 mls/hr 09/14/18 10:00 Levaquin 750mg/150ml IV Q24HR JAY Protocol Morphine Sulfate 2 mg 09/13/18 05:31 09/13/18 21:44 Morphine IV 2 mg Q4H PRN Administration Pain, Moderate (4-6) Ondansetron HCl 4 mg 09/13/18 05:31 09/14/18 04:44 Zofran IV 4 mg Q8H PRN Administration Nausea And Vomiting Pantoprazole Sodium 40 mg 09/13/18 10:00 09/13/18 11:40 Protonix IV 40 mg QDAY JAY Administration Sodium Chloride 10 ml 09/13/18 10:00 09/13/18 21:51 Sodium Chloride Flush Syringe 10 Ml IV 10 ml BID JAY Administration Sodium Chloride 10 ml 09/13/18 05:31 Sodium Chloride Flush Syringe 10 Ml IV PRN PRN LINE FLUSH
[2018-09-14] MEDS: LEVAQUIN 750MG/150ML 750 MG/150 ML BAG IV SCH (11:00)
[2018-09-14] MEDS: PROTONIX IV SCH (11:01)
--- NOTE | 2018-09-14 12:52 | Gastroenterology Progress Note ---
Assessment and Plan # Colitis/enteritis CT abdomen showing mucosal thickening of the TI, cecum, and right colon as well as partial small bowel obstruction versus ileus. - ddx including Crohns' disease/IBD vs infectious causes. No NSAID use per family. - currently on IV antibiotics. - no nausea/vomiting. continues to have diarrhea. - persistent abdominal pain and diarrhea. - C diff pending. - CRP elevated Rec: - cont with IV antibiotics - trial of clear liquids. - will plan for colonoscopy tomorrow. NPO [place]. [place] ordered. Discussed risks and benefits with the patient and family. - avoid NSAIDs. - Patient Problems (1) Abdominal pain Current Visit: Yes Status: Acute Qualifiers: Abdominal location: unspecified location Qualified Code(s): R10.9 - Unspecified abdominal pain (2) Diarrhea Current Visit: Yes Status: Acute Qualifiers: Diarrhea type: unspecified type Qualified Code(s): R19.7 - Diarrhea, unspecified Subjective Date of service: 09/14/18 Interval history: Patient reports abdominal pain slightly improving but only with pain medication. continues to have diarrhea without any blood. No nausea/vomiting Objective - Constitutional Vitals: Temp Pulse Resp BP Pulse Ox 97.6 F 80 18 128/65 97 09/14/18 11:50 09/14/18 11:50 09/14/18 11:50 09/14/18 11:50 09/14/18 11:50 - EENT ENT: hearing intact, clear oral mucosa, dentition normal - Neck Neck: supple, normal ROM - Respiratory Respiratory effort: normal Respiratory: bilateral: CTA - Cardiovascular Rhythm: regular - Extremities Extremities: pulses intact, No edema, normal color, Full ROM - Gastrointestinal General gastrointestinal: Present: soft, tender, non-distended, normal bowel sounds - Integumentary Integumentary: Present: clear, warm, dry - Neurologic Neurological: alert and oriented x3 - Labs CBC & Chem 7: 09/14/18 07:55 09/14/18 07:55 Labs: Laboratory Results - last 24 hr 09/13/18 09/14/18 09/14/18 14:56 07:55 07:55 WBC 4.5 RBC 4.64 Hgb 12.3 Hct 36.1 D MCV 78 L MCH 26 L MCHC 34 RDW 14.0 Plt Count 259 Sodium 139 D Potassium 4.0 Chloride 100.5 Carbon Dioxide 26 Anion Gap 17 BUN 7 L Creatinine 1.2 Estimated GFR > 60 BUN/Creatinine Ratio 6 Glucose 107 H Calcium 8.6 C-Reactive Protein 13.40 H
[2018-09-14] MEDS ORDERED: GOLYTELY PO ONE (16:00)
[2018-09-14] MEDS: MORPHINE IV PRN (19:56)
[2018-09-15] MEDS: FLAGYL 500 MG/100 ML 500 MG/100 ML BAG IV SCH ×3 (05:38→22:49)
[2018-09-15] MEDS: D5/0.45NS 1,000 ML IV SCH ×2 (05:39→13:44)
--- NOTE | 2018-09-15 08:24 | Progress Note ---
Assessment and Plan Assessment and plan: --Colitis./Enteritis; IV antibiotics, IV fluids, clear liquids and advance as tolerated GI and surgery following --Possible IBD/Crohn's versus infectious Supportive care, possible colonoscopy tomorrow --DVT prophylaxis; Lovenox Monitor closely and adjust management as needed History Interval history: Patient seen and examined medical records reviewed Patient feels slightly better, GI scheduled for colonoscopy today No new complaints Vital signs reviewed Hospitalist Physical - Constitutional Vitals: Temp Pulse Resp BP Pulse Ox 97.6 F 75 18 108/58 99 09/15/18 07:25 09/15/18 07:25 09/15/18 07:25 09/15/18 07:25 09/15/18 07:25 General appearance: Present: no acute distress, well-nourished, obese - EENT Eyes: Present: PERRL, EOM intact - Neck Neck: Present: supple, normal ROM - Respiratory Respiratory effort: normal Respiratory: bilateral: diminished, negative: rales, rhonchi, wheezing - Cardiovascular Rhythm: regular Heart Sounds: Present: S1 & S2 - Extremities Extremities: no ischemia, No edema - Abdominal General gastrointestinal: soft, non-tender, non-distended, normal bowel sounds - Integumentary Integumentary: Present: clear, warm - Psychiatric Psychiatric: appropriate mood/affect, cooperative - Neurologic Neurologic: CNII-XII intact, moves all extremities Results - Labs CBC & Chem 7: 09/14/18 07:55 09/14/18 07:55 Labs: Laboratory Last Values WBC 4.5 K/mm3 (4.5-11.0) 09/14/18 07:55 RBC 4.64 M/mm3 (3.65-5.03) 09/14/18 07:55 Hgb 12.3 gm/dl (11.8-15.2) 09/14/18 07:55 Hct 36.1 % (35.5-45.6) D 09/14/18 07:55 MCV 78 fl (84-94) L 09/14/18 07:55 MCH 26 pg (28-32) L 09/14/18 07:55 MCHC 34 % (32-34) 09/14/18 07:55 RDW 14.0 % (13.2-15.2) 09/14/18 07:55 Plt Count 259 K/mm3 (140-440) 09/14/18 07:55 Lymph % (Auto) 14.2 % (13.4-35.0) 09/13/18 01:47 [place] % (Auto) 7.3 % (0.0-7.3) 09/13/18 01:47 Eos % (Auto) 1.0 % (0.0-4.3) 09/13/18 01:47 Baso % (Auto) 0.2 % (0.0-1.8) 09/13/18 01:47 Lymph # 1.4 K/mm3 (1.2-5.4) 09/13/18 01:47 [place] # 0.7 K/mm3 (0.0-0.8) 09/13/18 01:47 Eos # 0.1 K/mm3 (0.0-0.4) 09/13/18 01:47 Baso # 0.0 K/mm3 (0.0-0.1) 09/13/18 01:47 Seg Neutrophils % 77.3 % (40.0-70.0) H 09/13/18 01:47 Seg Neutrophils # 7.4 K/mm3 (1.8-7.7) 09/13/18 01:47 Sodium 139 mmol/L (137-145) D 09/14/18 07:55 Potassium 4.0 mmol/L (3.6-5.0) 09/14/18 07:55 Chloride 100.5 mmol/L (98-107) 09/14/18 07:55 Carbon Dioxide 26 mmol/L (22-30) 09/14/18 07:55 17 mmol/L 09/14/18 07:55 BUN 7 mg/dL (9-20) L 09/14/18 07:55 1.2 mg/dL (0.8-1.5) 09/14/18 07:55 Estimated GFR > 60 ml/min 09/14/18 07:55 6 % 09/14/18 07:55 Glucose 107 mg/dL (75-100) H 09/14/18 07:55 Calcium 8.6 mg/dL (8.4-10.2) 09/14/18 07:55 13.40 mg/dL (0.00-1.30) H 09/13/18 14:56 Yellow (Yellow) 09/13/18 01:45 Clear (Clear) 09/13/18 01:45 5.0 (5.0-7.0) 09/13/18 01:45 Ur Specific [place] 1.018 (1.003-1.030) 09/13/18 01:45 <15 mg/dl mg/dL (Negative) 09/13/18 01:45 Neg mg/dL (Negative) 09/13/18 01:45 20 mg/dL (Negative) 09/13/18 01:45 Neg (Negative) 09/13/18 01:45 Neg (Negative) 09/13/18 01:45 Neg (Negative) 09/13/18 01:45 < 2.0 mg/dL (<2.0) 09/13/18 01:45 Ur Leukocyte Esterase Neg (Negative) 09/13/18 01:45 1.0 /HPF (0.0-6.0) 09/13/18 01:45 1.0 /HPF (0.0-6.0) 09/13/18 01:45 Few /HPF 09/13/18 01:45 Active Medications - Current Medications Current Medications: Generic Name Dose Route Start Last Admin Trade Name Freq PRN Reason Stop Dose Admin Metronidazole 500 mg in 100 mls @ 100 mls/hr 09/13/18 06:00 09/15/18 05:38 Flagyl 500 Mg/100 Ml IV 100 mls/hr Q8HR JAY Administration Protocol Dextrose/Sodium Chloride 1,000 mls @ 125 mls/hr 09/13/18 06:00 09/15/18 05:39 D5/0.45ns IV 125 mls/hr DIRECT JAY Administration Levofloxacin/Dextrose 750 mg in 150 mls @ 100 mls/hr 09/14/18 10:00 09/14/18 11:00 Levaquin 750mg/150ml IV 100 mls/hr Q24HR JAY Administration Protocol Morphine Sulfate 2 mg 09/13/18 05:31 09/14/18 19:56 Morphine IV 2 mg Q4H PRN Administration Pain, Moderate (4-6) Ondansetron HCl 4 mg 09/13/18 05:31 09/14/18 04:44 Zofran IV 4 mg Q8H PRN Administration Nausea And Vomiting Pantoprazole Sodium 40 mg 09/13/18 10:00 06/03/19 11:01 Protonix IV 40 mg QDAY JAY Administration Sodium Chloride 10 ml 09/13/18 10:00 09/14/18 22:14 Sodium Chloride Flush Syringe 10 Ml IV 10 ml BID JAY Administration Sodium Chloride 10 ml 09/13/18 05:31 Sodium Chloride Flush Syringe 10 Ml IV PRN PRN LINE FLUSH
[2018-09-15] MEDS: LEVAQUIN 750MG/150ML 750 MG/150 ML BAG IV SCH (11:04)
[2018-09-15] MEDS: PROTONIX IV SCH (11:04)
[2018-09-15] MEDS: SODIUM CHLORIDE FLUSH SYRINGE 10 ML IV SCH ×2 (11:07→22:49)
[2018-09-15] MEDS ORDERED: NACL 0.9% 1000 ML 1,000 ML IV SCH (14:00)
--- NOTE | 2018-09-15 14:46 | Anesthesia Day of Surgery ---
Anesthesia Day of Surgery - Day of Surgery Patient Examined: Yes Patient H&P Reviewed: Yes Patient is NPO: Yes
--- NOTE | 2018-09-15 14:46 | Anesthesia Consultation ---
Anesthesia Consult and Med Hx Date of service: 09/15/18 - Airway Anesthetic Teeth Evaluation: Good ROM Head & Neck: Adequate Mental/Hyoid Distance: Adequate Mallampati Class: Class II Intubation Access Assessment: Probably Good - Pre-Operative Health Status ASA Pre-Surgery Classification: ASA2 Proposed Anesthetic Plan: MAC - Pulmonary Hx Asthma: No COPD: No Hx Pneumonia: No - Endocrine Hx End Stage Renal Disease: No
[2018-09-15] MEDS ORDERED: DIPRIVAN 10 MG/ML IV ONE ×2 (14:51)
--- NOTE | 2018-09-15 15:31 | Operative Report ---
Operative Report Operative Report: Date of procedure: 09/15/2018 Preprocedure diagnosis: abnormal CT imaging, abdominal pain, nausea, diarrhea Post procedure diagnosis: cecal and ascending colon ulceration Procedure: Colonoscopy to the cecum Endoscopist: Dr. Amilcar Guy Anesthesia: Monitored anesthesia care per anesthesia department Estimated blood loss: minimal Medications: Monitored anesthesia care. See separate report by anesthesia for details. After careful discussion of the nature and purpose of the procedure as well as details of the technique risks benefits and alternatives the patient gave consent. Please see recent history and physical from the office. The patient was placed in the left lateral decubitus position and medicated per anesthesia. A rectal exam was performed sphincter tone was normal there were no masses palpable. The Olympus 190 scope was passed transanally and advanced under continuous direct vision without difficulty to the cecum. The prep quality was fair. There were extensive ulceration with erythematous mucosa, edema, and loss of vascular pattern and friable mucosa in patchy areas in the cecum and ascending colon. The mucosa in the cecum and ascending were significantly edematous and would not advance scope to the terminal ileum. Multiple biopsies were obtained. The transverse colon, descending colon, and sigmoid colon were normal. The rectum was normal on forward and retroflexed views. Multiple biospies were obtained from the rest of the colon including transverse, descending, sigmoid, and rectum. The procedure was well-tolerated overall and the patient was observed in recovery. Conclusions: 1. Extensive ulceration with erythematous mucosa, edema, and loss of vascular pa ttern and friable mucosa in the cecum and ascending colon. Bx obtained. 2. Rest of the colon was normal. Multiple biospies were obtained from the rest of the colon including transverse, descending, sigmoid, and rectum. 3. Overall, high suspicion for Crohn's disease involving distal small bowel and right colon based on colonoscopic appearance and imaging studies. Plan: 1. Clear liquid diet. 2. Start IV solumedrol 40 mg bid. 3. Monitor CRP. Follow up biopsy results. 4. Will follow. Signed electronically: Amilcar Guy MD
[2018-09-15] MEDS: SOLU-Medrol IV SCH ×2 (18:08→22:53)
[2018-09-16] MEDS: D5/0.45NS 1,000 ML IV SCH (03:23)
[2018-09-16] MEDS: FLAGYL 500 MG/100 ML 500 MG/100 ML BAG IV SCH (05:35)
[2018-09-16 07:34] VITALS: BP 102/64
--- NOTE | 2018-09-16 08:14 | Progress Note ---
Assessment and Plan Assessment and plan: --Colitis./Enteritis/high suspicion for Crohn's disease S/P Colonoscopy. Findings 1. Extensive ulceration with erythematous mucosa, edema, and loss of vascular pattern and friable mucosa in the cecum and ascending colon. Bx obtained. 2. Rest of the colon was normal. Multiple biospies were obtained from the rest of the colon including transverse, descending, sigmoid, and rectum. 3. Overall, high suspicion for Crohn's disease involving distal small bowel and right colon based on colonoscopic appearance and imaging studies. On IV Solu-Medrol 40 mg twice a day, IV antibiotics, supportive care Clear liquids and advance as tolerated Follow biopsy reports --DVT prophylaxis; Lovenox Monitor closely and adjust management as needed Possible discharge in 1-2 days if stable History Interval history: Patient seen and examined medical records reviewed The patient underwent colonoscopy yesterday Today patient feels slightly better No new complaints Vital signs reviewed Hospitalist Physical - Constitutional Vitals: Temp Pulse Resp BP Pulse Ox 97.4 F L 51 L 18 102/64 97 09/16/18 07:00 09/16/18 07:06 09/16/18 07:00 09/16/18 07:00 09/16/18 07:06 General appearance: Present: no acute distress, well-nourished, obese - EENT Eyes: Present: PERRL, EOM intact - Neck Neck: Present: supple, normal ROM - Respiratory Respiratory effort: normal Respiratory: negative: rales, rhonchi, wheezing - Cardiovascular Rhythm: regular Heart Sounds: Present: S1 & S2 - Extremities Extremities: no ischemia, No edema - Abdominal General gastrointestinal: soft, non-tender, non-distended, normal bowel sounds - Integumentary Integumentary: Present: clear, warm - Psychiatric Psychiatric: appropriate mood/affect, cooperative - Neurologic Neurologic: moves all extremities Results - Labs CBC & Chem 7: 09/14/18 07:55 09/14/18 07:55 Labs: Laboratory Last Values WBC 4.5 K/mm3 (4.5-11.0) 09/14/18 07:55 RBC 4.64 M/mm3 (3.65-5.03) 09/14/18 07:55 Hgb 12.3 gm/dl (11.8-15.2) 09/14/18 07:55 Hct 36.1 % (35.5-45.6) D 09/14/18 07:55 MCV 78 fl (84-94) L 09/14/18 07:55 MCH 26 pg (28-32) L 09/14/18 07:55 MCHC 34 % (32-34) 09/14/18 07:55 RDW 14.0 % (13.2-15.2) 09/14/18 07:55 Plt Count 259 K/mm3 (140-440) 09/14/18 07:55 Lymph % (Auto) 14.2 % (13.4-35.0) 09/13/18 01:47 [place] % (Auto) 7.3 % (0.0-7.3) 09/13/18 01:47 Eos % (Auto) 1.0 % (0.0-4.3) 09/13/18 01:47 Baso % (Auto) 0.2 % (0.0-1.8) 09/13/18 01:47 Lymph # 1.4 K/mm3 (1.2-5.4) 09/13/18 01:47 [place] # 0.7 K/mm3 (0.0-0.8) 09/13/18 01:47 Eos # 0.1 K/mm3 (0.0-0.4) 09/13/18 01:47 Baso # 0.0 K/mm3 (0.0-0.1) 09/13/18 01:47 Seg Neutrophils % 77.3 % (40.0-70.0) H 09/13/18 01:47 Seg Neutrophils # 7.4 K/mm3 (1.8-7.7) 09/13/18 01:47 Sodium 139 mmol/L (137-145) D 09/14/18 07:55 Potassium 4.0 mmol/L (3.6-5.0) 09/14/18 07:55 Chloride 100.5 mmol/L (98-107) 09/14/18 07:55 Carbon Dioxide 26 mmol/L (22-30) 09/14/18 07:55 17 mmol/L 09/14/18 07:55 BUN 7 mg/dL (9-20) L 09/14/18 07:55 1.2 mg/dL (0.8-1.5) 09/14/18 07:55 Estimated GFR > 60 ml/min 09/14/18 07:55 6 % 09/14/18 07:55 Glucose 107 mg/dL (75-100) H 09/14/18 07:55 Calcium 8.6 mg/dL (8.4-10.2) 09/14/18 07:55 13.40 mg/dL (0.00-1.30) H 09/13/18 14:56 Yellow (Yellow) 09/13/18 01:45 Clear (Clear) 09/13/18 01:45 5.0 (5.0-7.0) 09/13/18 01:45 Ur Specific [place] 1.018 (1.003-1.030) 09/13/18 01:45 <15 mg/dl mg/dL (Negative) 09/13/18 01:45 Neg mg/dL (Negative) 09/13/18 01:45 20 mg/dL (Negative) 09/13/18 01:45 Neg (Negative) 09/13/18 01:45 Neg (Negative) 09/13/18 01:45 Neg (Negative) 09/13/18 01:45 < 2.0 mg/dL (<2.0) 09/13/18 01:45 Ur Leukocyte Esterase Neg (Negative) 09/13/18 01:45 1.0 /HPF (0.0-6.0) 09/13/18 01:45 1.0 /HPF (0.0-6.0) 09/13/18 01:45 Few /HPF 09/13/18 01:45 C. difficile Tox (PCR) Negative (Negative) 09/13/18 11:45 Active Medications - Current Medications Current Medications: Generic Name Dose Route Start Last Admin Trade Name Freq PRN Reason Stop Dose Admin Metronidazole 500 mg in 100 mls @ 100 mls/hr 09/13/18 06:00 09/16/18 05:35 Flagyl 500 Mg/100 Ml IV 100 mls/hr Q8HR JAY Administration Protocol Dextrose/Sodium Chloride 1,000 mls @ 125 mls/hr 09/13/18 06:00 09/16/18 03:23 D5/0.45ns IV 125 mls/hr DIRECT JAY Administration Levofloxacin/Dextrose 750 mg in 150 mls @ 100 mls/hr 09/14/18 10:00 09/15/18 11:04 Levaquin 750mg/150ml IV 100 mls/hr Q24HR JAY Administration Protocol Sodium Chloride 1,000 mls @ 50 mls/hr 09/15/18 14:00 Nacl 0.9% 1000 Ml IV DIRECT JAY Methylprednisolone Sodium Succinate 40 mg 09/15/18 16:00 09/15/18 22:53 Solu-Medrol IV Not Given Q12HR JAY Morphine Sulfate 2 mg 09/13/18 05:31 09/14/18 19:56 Morphine IV 2 mg Q4H PRN Administration Pain, Moderate (4-6) Ondansetron HCl 4 mg 09/13/18 05:31 09/14/18 04:44 Zofran IV 4 mg Q8H PRN Administration Nausea And Vomiting Pantoprazole Sodium 40 mg 09/13/18 10:00 09/15/18 11:04 Protonix IV 40 mg QDAY JAY Administration Sodium Chloride 10 ml 09/13/18 10:00 09/15/18 22:49 Sodium Chloride Flush Syringe 10 Ml IV 10 ml BID JAY Administration Sodium Chloride 10 ml 09/13/18 05:31 Sodium Chloride Flush Syringe 10 Ml IV PRN PRN LINE FLUSH
--- NOTE | 2018-09-16 09:20 | Gastroenterology Progress Note ---
Assessment and Plan 1.colitis/enteritis 2.abdominal pain 3.diarrhea -afebrile -WBC and H/H WNL -stool C-diff negative -CRP 13.40 -CT abdomen showing mucosal thickening of the TI, cecum, and right colon as well as partial small bowel obstruction versus ileus -s/p colonoscopy yesterday that showed: 1. Extensive ulceration with erythematous mucosa, edema, and loss of vascular pattern and friable mucosa in the cecum and ascending colon. Bx obtained. 2. Rest of the colon was normal. Multiple biospies were obtained from the rest of the colon including transverse, descending, sigmoid, and rectum. 3. Overall, high suspicion for Crohn's disease involving distal small bowel and right colon based on colonoscopic appearance and imaging studies. -bx results pending-f/u in clinic -clinically, patient is stable. Reports feeling better with abd pain improved. Still has some mild diarrhea but no signs of bleeding or N/V. Tolerating liquids. -start on soft diet-advance as tolerated -continue empiric antibiotics for total of 7-10 days -continue steroids (transition to PO) -continue supportive care -if patient tolerates diet, okay to be discharged per GI standpoint on steroid taper with f/u in clinic ~2weeks for further management -will sign off, please call if needed Subjective Date of service: 09/16/18 Principal diagnosis: abd pain, diarrhea, possible IBD Interval history: Patient resting in bed w/o acute distress and family at bedside. Reports feeling better with abd pain improved. Still has some diarrhea this am but no active signs of bleeding. No N/V. Tolerating liquids. Objective - Constitutional Vitals: Temp Pulse Resp BP Pulse Ox 97.4 F L 51 L 18 102/64 97 09/16/18 07:00 09/16/18 07:06 09/16/18 07:00 09/16/18 07:00 09/16/18 07:06 General appearance: no acute distress - Respiratory Respiratory: bilateral: CTA - Cardiovascular Rhythm: regular - Gastrointestinal General gastrointestinal: Present: soft, non-tender, non-distended, normal bowel sounds - Neurologic Neurological: alert and oriented x3 - Labs CBC & Chem 7: 09/14/18 07:55 09/14/18 07:55 Labs: Laboratory Results - last 24 hr 06/02/19 11:45 C. difficile Tox (PCR) Negative
[2018-09-16] MEDS: LEVAQUIN 750MG/150ML 750 MG/150 ML BAG IV SCH (09:47)
[2018-09-16] MEDS: SOLU-Medrol IV SCH (09:48)
[2018-09-16] MEDS: SODIUM CHLORIDE FLUSH SYRINGE 10 ML IV SCH (10:00)
--- NOTE | 2018-09-16 12:03 | Discharge Summary ---
Providers - Providers Date of Admission: 09/13/18 05:41 Date of discharge: 09/16/18 Attending physician: NORMA GREENE 09/13/18 05:04 Consult to Physician [CONS] Stat Comment: Consulting Provider: STEPHANY BARBER Physician Instructions: Reason For Exam: abd pain, diarrhea, possible IBD 09/13/18 06:20 Consult to Physician [CONS] Routine Comment: Consulting Provider: RICHAR RIOS Physician Instructions: Reason For Exam: possible sbo 09/16/18 09:17 Consult to Dietitian/Nutrition [CONS] Routine Physician Instructions: christal Sanz Reason For Exam: Reason for Consult: Diet education [facility] Reason for admission: Abdominal pain Condition: Fair Pertinent studies: CT Abd and pelvis Hospital course: Patient is a 18-year-old male with no prior medical history we'll presents to the ER with complaints of abdomen pain 1 month. Patient patient's report intermittent abdominal pain for a month ago, the pain is cramp-like pain diffusing throughout the abdomen, he reports that the pain is sometimes related to food but does not persist after he ate. admitted and symptomatically managed,Evaluated by GI,had colonoscopy and biopsy Managed with steroids and antibiotics.Today patient feels better ,no new complains,vital signs stable. DC home f/u GI,PMD per schedule Discharge Diagnosis: --Colitis./Enteritis/high suspicion for Crohn's disease S/P Colonoscopy. Findings 1. Extensive ulceration with erythematous mucosa, edema, and loss of vascular pattern and friable mucosa in the cecum and ascending colon. Bx obtained. 2. Rest of the colon was normal. Multiple biospies were obtained from the rest of the colon including transverse, descending, sigmoid, and rectum. 3. Overall, high suspicion for Crohn's disease involving distal small bowel and right colon based on colonoscopic appearance and imaging studies. On IV Solu-Medrol 40 mg twice a day, IV antibiotics, supportive care Clear liquids and advance as tolerated Follow biopsy reports --DVT prophylaxis; Lovenox Cleared for discharge Stable at discharge Disposition: DC- TO HOME OR SELFCARE Time spent for discharge: 32 min Core Measure Documentation - Palliative Care Palliative Care/ Comfort Measures: Not Applicable - Core Measures Any of the following diagnoses?: none Exam - Constitutional Vitals: Temp Pulse Resp BP Pulse Ox 97.4 F L 51 L 18 102/64 97 09/16/18 07:00 09/16/18 07:06 09/16/18 07:00 09/16/18 07:00 09/16/18 07:06 General appearance: Present: no acute distress, well-nourished - EENT Eyes: Present: PERRL, EOM intact - Neck Neck: Present: supple, normal ROM - Respiratory Respiratory effort: labored Respiratory: negative: rales, rhonchi, wheezing - Cardiovascular Rhythm: regular Heart Sounds: Present: S1 & S2 - Extremities Extremities: no ischemia, No edema - Abdominal General gastrointestinal: Present: soft, non-tender, non-distended, normal bowel sounds - Integumentary Integumentary: Present: clear, warm - Musculoskeletal Musculoskeletal: strength equal bilaterally - Psychiatric Psychiatric: appropriate mood/affect, cooperative - Neurologic Neurologic: moves all extremities Plan Activity: no restrictions Diet: clear liquids (soft diet advance as tolerated) Additional Instructions: Plenty oral fluids. Advance diet as tolerated Follow up with: ANIYAH [place] [place] MD ELVI [Primary Care Provider] - 7 Days MINSTEPHANY MD [Staff Physician] - 14 Days Prescriptions: predniSONE [Deltasone] 4 tab PO QDAY #70 tab metroNIDAZOLE [Flagyl] 500 mg PO Q8HR #21 tablet levoFLOXacin [Levaquin] 750 mg PO QDAY #7 tablet Pantoprazole [Protonix TAB] 40 mg PO DAILY #14 tablet
[2018-09-16] MEDS: PROTONIX IV SCH (12:25)
[2018-09-17] MEDS ORDERED: PROTONIX PO SCH (10:00)
== END 2018-09-16 14:15 | disposition home or self-care (01) | DRG 386 ==
LOC: ED 01:28 → 3B-SURG 05:41
PROVIDERS: ADMIT Internal Medicine; ATTEND Internal Medicine
PROC: 0D9670Z Drainage of Stomach with Drainage Device, Via Natural or Artificial Opening (ICD-10-PCS; principal; 2018-09-13)
PROC: 0DBK8ZX Excision of Ascending Colon, Via Natural or Artificial Opening Endoscopic, Diagnostic (ICD-10-PCS; 2018-09-15)
PROC: 0DBL8ZX Excision of Transverse Colon, Via Natural or Artificial Opening Endoscopic, Diagnostic (ICD-10-PCS; 2018-09-15)
PROC: 0DBN8ZX Excision of Sigmoid Colon, Via Natural or Artificial Opening Endoscopic, Diagnostic (ICD-10-PCS; 2018-09-15)
PROC: 0DBP8ZX Excision of Rectum, Via Natural or Artificial Opening Endoscopic, Diagnostic (ICD-10-PCS; 2018-09-15)
PROC: 0DBM8ZX Excision of Descending Colon, Via Natural or Artificial Opening Endoscopic, Diagnostic (ICD-10-PCS; 2018-09-15)
PROC: 0DBH8ZX Excision of Cecum, Via Natural or Artificial Opening Endoscopic, Diagnostic (ICD-10-PCS; 2018-09-15)
DX: K51.90 Ulcerative colitis, unspecified, without complications (principal); K56.600 Partial intestinal obstruction, unspecified as to cause; K52.9 Noninfective gastroenteritis and colitis, unspecified
CPT/HCPCS: 36415; 74177; 80048; 81001; 82270; 85007; 85025; 85027; 86140; 87045; 87493; 88305; G0378; C9113; J1885; J1956; J2270; J2405; J2704; J2920; J7030; Q9967